=== PATIENT | female | born 1985 | race Two or more races ===

== ENCOUNTER 2021-12-19 02:15 | Emergency (ER) | payer OTHER ==
[~2021-12-19] VITALS: Ht 177.8 cm; Wt 75.0 kg
[2021-12-19 02:44] VITALS: BP 137/74
[2021-12-19] MEDS ORDERED: PredniSONE 20 MG TABLET PO ONE (03:00)
[2021-12-19] MEDS ORDERED: DiphenhydrAMINE HCL 50 MG/ML VIAL IM ONE (03:00)
[2021-12-19] MEDS ORDERED: DIPH50CA35 PO (03:56)
[2021-12-19] MEDS ORDERED: PRED-554 PO (03:56)
[2021-12-19] MEDS ORDERED: EPIN0.3P3 IM (03:56)
== END 2021-12-19 04:23 | disposition home or self-care (01) ==
LOC: EMS 02:19
DX: L50.9 Urticaria, unspecified (principal); Z91.018 Allergy to other foods
CPT/HCPCS: 96372; 99283; J1200; J7512

== ENCOUNTER 2022-01-30 01:12 | Emergency (ER) | payer OTHER ==
[~2022-01-30] VITALS: Ht 177.8 cm; Wt 75.0 kg
[~2022-01-30 01:12] MED LIST: DIPH50CA35 PO; EPIN0.3P3 IM; PRED-554 PO
[2022-01-30 01:15] VITALS: BP 134/78
[2022-01-30 03:05] LABS: BASOPHILS % (AUTO) 0.9 % (0.0-2.0); EOSINOPHILS % (AUTO) 1.4 % (1.0-6.0); HEMATOCRIT 38.1 % (36-46); LYMPHOCYTES # (AUTO) 2.4 K/uL (1.0-4.8); LYMPHOCYTES % (AUTO) 30.9 % (22.0-44.0); MEAN CORPUSCULAR HEMOGLOBIN 30.9 pg (26.0-34.0); MEAN CORPUSCULAR VOLUME 91 fL (80-100); MONOCYTES # (AUTO) 0.7 K/uL (0.1-1.0); MONOCYTES % (AUTO) 9.4 % (2.0-9.0); NEUTROPHILS # (AUTO) 4.5 K/uL (1.8-7.7); NEUTROPHILS % (AUTO) 57.4 % (40.0-70.0); PLATELET COUNT (AUTO) 274 K/uL (150-450); RED BLOOD CELL COUNT(AUTO) 4.19 MIL/uL (4.00-5.20); RED CELL DISTRIBUTION WIDTH 14.2 % (11.5-14.5)
[2022-01-30 03:12] LABS: ANION GAP 8 mmol/L (8-16); CALCIUM, TOTAL 9.3 mg/dL (8.8-10.5); CARBON DIOXIDE 28 mmol/L (22-29); CHLORIDE 103 mmol/L (98-107); CREATININE 0.79 mg/dL (0.60-1.30); GLOMERULAR FILTR. RATE CALC > 60 mL/min (>60); GLUCOSE,RANDOM 107 mg/dL (70-110); POTASSIUM 3.5 mmol/L (3.5-5.1); SODIUM SERUM 139 mmol/L (136-145); UREA NITROGEN, BLOOD 10 mg/dL (7-18)
[2022-01-30 03:18] LABS: ALANINE AMINOTRANSFERASE 19 U/L (12-78); ALKALINE PHOSPHATASE 72 U/L (46-116); ASPARTATE AMINOTRANSFERASE 16 U/L (15-37); BILIRUBIN,TOTAL 0.4 mg/dL (0.1-1.0)
[2022-01-30] MEDS ORDERED: DEXA6TAB7 PO (04:12)
== END 2022-01-30 04:21 | disposition home or self-care (01) ==
LOC: EMS 01:15
DX: E04.9 Nontoxic goiter, unspecified (principal); F10.20 Alcohol dependence, uncomplicated; Z91.010 Allergy to peanuts
CPT/HCPCS: 80053; 85025; 87430; 99283